=== PATIENT | female | born 1975 | race Caucasian/White ===

== ENCOUNTER → 2020-08-09 | Outpatient (CLI) | payer BC ==
--- NOTE | 2020-08-09 09:57 | KCIC ---
MR CERVICAL SPINE WO DATE: 08/09/2020 8:05 AM INDICATION: PAIN IN NECK. Acute left sided neck pain with LUE pain and numbness x 6 weeks. TECHNIQUE: Multiplanar multisequence magnetic resonance imaging of the cervical spine was performed w ithout administration of intravenous contrast using the standard cervical spine protocol. COMPARISON: None. FINDINGS: The cervical spine is normally aligned. No acute fracture. Mild multilevel degenerative disc desicca tion and disc height loss. No marrow replacing process to suggest malignancy. The spinal cord is normal in signal intensity. On the limited views of the cranial cavity and brain, the cerebellum and binh have normal morphology and signal characteristics. No Chiari malformation. No soft tissue abnormality. Normal signal voids are present in the vertebral arteries. C2-3: No significant spinal canal stenosis or neural foraminal narrowing. C3-4: Uncovertebral hypertrophy. Mild right neural foraminal narrowing. No spinal canal stenosis. C4-5: Disc osteophyte complex. Uncovertebral hypertrophy. Moderate bilateral neural foraminal narrowi ng. No spinal canal stenosis. C5-6: Disc osteophyte complex. Uncovertebral hypertrophy. Severe right and moderate to severe left ne ural foraminal narrowing. No spinal canal stenosis. C6-7: Disc osteophyte complex with annular tear. Uncovertebral hypertrophy. Mild right and moderate l eft neural foraminal narrowing. No spinal canal stenosis. C7-T1: No significant spinal canal stenosis or neural foraminal narrowing. IMPRESSION: Cervical spondylosis, worst at C5-C6 with severe narrowing of the right neural foramen and moderate t o severe narrowing on the left. Electronically signed by: Anup Lai MD (08/09/2020 9:55 AM) [id number]
== END ==
LOC: KCIC MRI 07:57
PROVIDERS: ATTEND Chiropractor
DX: M47.812 Spondylosis without myelopathy or radiculopathy, cervical region (principal); M48.03 Spinal stenosis, cervicothoracic region
CPT/HCPCS: 72141